=== PATIENT | male | born 1940 | race Caucasian/White ===

== ENCOUNTER → 2018-09-17 | Outpatient (CLI) | payer OTHER | LOC: CAT 08:01 | PROVIDERS: Family Medicine | DX: K40.30 Unilateral inguinal hernia, with obstruction, without gangrene, not specified as recurrent (principal) ==

== ENCOUNTER 2019-05-21 11:00 | Inpatient (IN) | payer OTHER ==
[~2019-05-21] VITALS: Ht 170.2 cm; Wt 72.6 kg
[2019-05-21] VITALS (7 sets, daily range): BP systolic 121–142; BP diastolic 54–76
--- NOTE | ~2019-05-21 | O ---
[facility] [place] [address] OPERATIVE REPORT Name: EDEL NAVARRO Room #: 150-11 [facility] M..#: [id number] Admission: 05/21/19 Attend Phys: Chris Soler MD Discharge: Date of : 42 Report #: [id number] THIS REPORT FOR: cc: Clovis Ayala,Chris Mtz MD ~ THIS REPORT FOR: //name// CC: Clovis Cornelius DATE OF SERVICE: 05/21/2019 PREOPERATIVE DIAGNOSIS: Incarcerated left inguinal/femoral hernia. POSTOPERATIVE DIAGNOSIS: incarcerated left femoral hernia. OPERATIVE PROCEDURE DONE: Laparoscopic repair of incarcerated left femoral hernia. OPERATING SURGEON: Chris Soler MD INDICATIONS FOR PROCEDURE: The patient is a 78-year-old male who presented with complaints of right groin pain and irreducible lump. The patient was referred by Dr. Ayala on suspicion of an incarcerated hernia. Clinically, he was noted to have an incarcerated inguinal hernia, possibly a femoral hernia. The patient was advised laparoscopic repair of the same. DESCRIPTION OF PROCEDURE: After explaining to the patient in detail and informed consent was obtained, the patient was identified in the preoperative holding area. The patient was transferred to the operating room and was placed in supine position. Sequential compressive devices were placed for DVT prophylaxis. Preoperative antibiotics were given. After induction of anesthesia, the abdomen was prepped and draped in a sterile fashion. Through a left upper quadrant stab incision and using Veress needle technique, I attempted to create pneumoperitoneum; however, I was unable to accurately place a Veress needle and therefore, using through a 1 cm incision in the left flank and using Optiview technique, peritoneal cavity was entered and pneumoperitoneum was continued. Another 5 mm trocar was placed in the right flank and another 5 mm trocar was placed through a supraumbilical incision. On initial inspection, the patient was noted to have incarcerated hernia in the right groin. On further inspection, it was noted to be a right femoral hernia. This was containing omentum. This was gently reduced with gentle traction. I then reflected the peritoneum from the anterior abdominal wall at the level of the anterior superior iliac spine. The sac was dissected using sharp and blunt dissection, I [address] [address] OPERATIVE REPORT Name: EDEL NAVARRO Room #: 150-11 [facility] M..#: [id number] Admission: 05/21/19 Attend Phys: Chris Soler MD Discharge: Date of : 42 Report #: [id number] was finally able to reduce the sac. The William's ligament was exposed medially. I then also did a lateral exposure. Once this was completed, I then chose a large size 3DMax mesh and this was placed into this hernial space. The mesh was then tacked medially onto the William's ligament. One tack was placed anteriorly. Two tacks were placed laterally. The mesh was then covered using the underlying peritoneum using SecureStrap at 1 cm intervals. There was minimal oozing that was noted from one of the tacks sites, which was controlled with pressure and Edin. Absolute hemostasis was then ensured. The abdomen was then deflated. Incisions were then closed with 4-0 Monocryl. Dermabond was applied. The patient was stable at the end of the procedure. The patient was awoken up from anesthesia and was transferred to the recovery room in stable condition. ESTIMATED BLOOD LOSS: 15 mL. CONDITION OF THE PATIENT: Stable. FLUIDS GIVEN: Per anesthesia notes. SPECIMEN SENT: None. COMPLICATIONS: None. ANESTHESIA: General anesthesia. By: [id number] Chris Soler MD /nt
--- NOTE | 2019-05-21 17:54 | NUR ---
NEW ADMIT FOR HERNIA REPAIR, A/OX4, DENIES CHEST PAIN, DENIES SOB, ABD PAIN MANAGED WITH MEDICATIONS, 3 LAP SITES ACROSS ABD INTACT WITH DURABOND. ADMISSION ASSESMENT AND HISTORY COMPLETED. ORIENTED TO ROOM AND CALL LIGHT. INSTRUCTED PT TO CALL FOR ASSISTANCE.
[2019-05-22 04:20] VITALS: BP 114/72
--- NOTE | 2019-05-22 06:05 | NUR ---
Pt. requested mucinex for congestion , doctor notified and order received. By the time order obtained , pt. already sleeping. C/o minor discomfort with movement bhe rated as 2/10 but refused to take pain med when offered. No nausea or vomiting just belching.He slept some then woke up very upset with kleenex all over the floor and stated he disconnected something off the wall. Pt. will not allow staff to empty trash or tidy up room and stated if we attempt he will raise hell that might wake up everybody on the floor. Pt. allowed to vent and waited till he calm down a little. Offered the mucinex that was ordered but he refused to take it stating it's been hours and he will only get charge for it. Offered pain med again but denies need for it. Lap sites well approximated. Voided per urinal. SCD's on most of the night but refused to put it back once he woke up. Will continue to monitor.
[2019-05-22 07:08] VITALS: BP 130/73
[2019-05-22 08:54] LABS: HEMATOCRIT 44.4 % (42.0-52.0); HEMOGLOBIN 14.2 gm/dL (14.0-18.0); MCH 27.9 pg (26.0-34.0); MCHC 32.1 g/dL (28.0-37.0); MCV 86.8 fL (80.0-100.0); RBC 5.11 mil/uL (4.50-6.00); RDW 12.6 % (10.5-14.5); WBC 10.2 thou/uL (4.0-11.0)
[2019-05-22 09:01] LABS: ALBUMIN 3.4 g/dL (3.4-5.0); CALCIUM 8.5 mg/dL (8.5-10.1); CREATININE 1.1 mg/dL (0.7-1.3); PHOSPHORUS 2.2 mg/dL (2.5-4.9); POTASSIUM 4.2 mmol/L (3.5-5.1)
--- NOTE | 2019-05-22 10:00 | NUR ---
PT alert and oriented X4. ASSESSMENT COMPLETED, LAP SITES DRY, CLEAN AND INTACT. NO SIGNS OF BLEEDING. PT BOWEL SOUNDS HYPOACTIVE. PT STATES PASSING GAS. INCENTIVE SPIROMETER USE IS BEING ENCOURAGE, PT TOLERATES IT FAIRLY. PT CPMPLAINS OF COUGH, PRODUCTIVE. PT UP IN CHAIR, DENIES ANY OTHER NEEDS AT THE MOMENT. CALL LIGHT IN REACH AND CHAIR ALARM.
--- NOTE | 2019-05-22 10:10 | NUR ---
1005 WEMT IN TO CHECK UP ON PT, SAW PT IN BATHROOM VOMITING. EMESIS LOOKED DARK IN COLOR. 1010 DR. EILER ARTHUR, WAITING ON RESPONSE. WILL CONTINUE TO CHECK UP ON PT.
--- NOTE | 2019-05-22 11:13 | NUR ---
DR CR CALLED BACK. ORDERS PUT IN PER HIS REQUEST. PT AND CURT UPDATED ON CARE.
[2019-05-22 19:14] VITALS: BP 129/74
--- NOTE | 2019-05-22 19:48 | NUR ---
PT WAS FOUND WITH SMALL BOTTLE OF ASSORTED MEDS IN BED. PT STATES THEY ARE ALL SUPPLEMENTS OR VITAMINS. PT EDUACATED ON HOSPITAL POLICY THAT PATIENTS CANNOT TAKE HOME MEDICATIONS WITHOUT A PHYSICIAN ORDER. MEDICATIONS AND BOTTLE SENT TO PHARMACY. NO MEDS LISTED UNDER PT'S MED REC. PT STATED HE NEEDS TO GET HIS HOME MED LIST TO TELL US WHAT MEDS HE TAKES AT HOME. NURSING WILL UPDATE MED REC ONCE WE RECEIVE PT'S HOME MED LIST.
[2019-05-23 03:46] VITALS: BP 125/66
--- NOTE | 2019-05-23 05:09 | NUR ---
ASSUMED PT CARE AROUND 1899. A&OX4. PT C/O ACID REFLUX AND LOTS OF BELCHING AT BEGINNING OF SHIFT. PT HAD 1 EPISODE OF PITTING UP SMALL AMOUNT OF COFFEE GROUND MUCOUS AROUND 2029. ZOFRAN WAS GIVEN. PT SLEPT MOST OF THE NIGHT. RESP EVEN AND UNLABORED. PT STILL STATES HE IS NOT PASSING ANY FLATUS. PT INSTRUCTED TO NOTIFY NURSING IF HE HAS A BOWEL MOVEMENT. PROGRESSING SLOWLY TOWARD POC GOALS. WILL CONTINUE TO MONITOR FURTHER.
[2019-05-23 05:29] LABS: HEMATOCRIT 39.3 % (42.0-52.0); HEMOGLOBIN 12.8 gm/dL (14.0-18.0); MCH 28.2 pg (26.0-34.0); MCHC 32.5 g/dL (28.0-37.0); MCV 86.8 fL (80.0-100.0); RBC 4.53 mil/uL (4.50-6.00); RDW 12.6 % (10.5-14.5)
[2019-05-23 07:03] VITALS: BP 95/72
--- NOTE | 2019-05-23 10:21 | NUR ---
pt alert and oriented X4, assessment completed. Pt continues to blech and hiccup, compalins of pain with hiccup. Dr. delatorre on the floor upadted on pt care. GI consulted per orders. Pt and family updated. call light in reach, bed at lowest level.
[2019-05-23 15:05] VITALS: BP 126/75
--- NOTE | 2019-05-23 16:34 | NUR ---
Pt bowel sounds hypoactive, pt continues to belch and hiccough. DR. delatorre updated on care
[2019-05-23 19:35] VITALS: BP 116/69
[2019-05-24 03:10] VITALS: BP 115/67
--- NOTE | 2019-05-24 05:21 | NUR ---
Medicated for pain with some relief. He slept fair during the night with at bedside. No nausea or vomiting this shift. Hiccups persists and only stops when sound asleep per pt. and .Kept NPO except pain med given this am with little sip of water. GI to see pt. today. Lap sites well approximated , PURCHASING OFFICER. Up with assist to bathroom and other times he uses urinal at bedside. Sinus arryhtmia per tele. Making progress towards care plan goals.
[2019-05-24 05:34] LABS: HEMATOCRIT 33.4 % (42.0-52.0); MCH 28.2 pg (26.0-34.0); MCHC 32.4 g/dL (28.0-37.0); MCV 87.1 fL (80.0-100.0); RBC 3.83 mil/uL (4.50-6.00); RDW 12.5 % (10.5-14.5); WBC 8.3 thou/uL (4.0-11.0)
[2019-05-24 05:44] LABS: HEMOGLOBIN 10.8 gm/dL (14.0-18.0)
[2019-05-24 05:50] LABS: CALCIUM 8.2 mg/dL (8.5-10.1); CREATININE 0.8 mg/dL (0.7-1.3); POTASSIUM 4.1 mmol/L (3.5-5.1)
[2019-05-24 07:27] VITALS: BP 111/74
[2019-05-24] MEDS ORDERED: PROTONIX 20 MG20 M1 PO (10:26)
[2019-05-24] MEDS ORDERED: NORCO 5-325 TA1 EAC1 PO (10:27)
[2019-05-24 15:11] VITALS: BP 120/69
--- NOTE | 2019-05-24 17:59 | NUR ---
ASSUMED PATIENT CARE AT 0700. A/0 X4. AMBULATED IN ROOM. NO N/V. STILL HAS HICCUPS. TOLERATED REGULAR DIET. WILL NPO AFTER MIDNIGHT TO HAVE EGD TOMORROW. SOLWYTOWARDS POC GOALS.
[2019-05-24 20:18] VITALS: BP 124/69
[2019-05-25 04:51] VITALS: BP 132/70
--- NOTE | 2019-05-25 05:48 | NUR ---
Ambulated around hallway x2 at HS. Encouraged use of IS while awake. Promethazine given for hiccups with some relief. Did not require pain med this shift and denies need when offered. Pain is mild between 2-3 / 10. Lap sites well approximated. He slept well during the night. at bedside. Pt. is now a low fall risk. Ambulated with steady gait . Fall hx from admission he stated was because of him not paying attention and he tripped over something. Kept NPO for possible EGD. Tolerated diet without nausea or vomiting. Making progress towards care plan goals.
[2019-05-25 06:22] LABS: HEMATOCRIT 30.9 % (42.0-52.0); HEMOGLOBIN 10.3 gm/dL (14.0-18.0); MCH 28.8 pg (26.0-34.0); MCHC 33.4 g/dL (28.0-37.0); MCV 86.2 fL (80.0-100.0); RBC 3.59 mil/uL (4.50-6.00); RDW 12.5 % (10.5-14.5); WBC 6.1 thou/uL (4.0-11.0)
[2019-05-25 06:40] LABS: CALCIUM 7.9 mg/dL (8.5-10.1); CREATININE 0.9 mg/dL (0.7-1.3); POTASSIUM 3.8 mmol/L (3.5-5.1)
[2019-05-25 07:15] VITALS: BP 114/56
[2019-05-25 10:05] VITALS: BP 114/56
--- NOTE | 2019-05-27 09:47 | HC ---
[facility] [place] [address] CONSULTATION Name: EDEL NAVARRO Room #: 349-I [facility] M.R.#: [id number] Admission: 05/21/19 Attend Phys: Chris Soler MD Discharge: 05/25/19 Date of : 42 Report #: [id number] THIS REPORT FOR: cc: Clovis Ayala James A. DO Mavec, James A. MD ~ CC: Clovis Soler DATE OF SERVICE: 05/24/2019 REASON FOR CONSULTATION: Reported hematemesis. HISTORY OF PRESENT ILLNESS: A 78-year-old male who had a herniorrhaphy. Postoperatively, he had small amount of bloody emesis x 2. This is resolved. He is having hiccoughs presently. He has not had problems like this before. He is on pantoprazole presently. He has been hemodynamically stable. Past medical, surgical, family, social histories reviewed on computerized medical records. PHYSICAL EXAMINATION: General: Alert and oriented. at bedside. LABORATORY DATA: Reviewing labs, his hemoglobin is stable. Platelet count is normal. BUN is 21, creatinine is 1.1. IMPRESSION: Some emesis after surgery that had blood in it. The patient is not having significant GI blood loss. Recommend continue empiric pantoprazole. The patient is still in the hospital, on 05/25/2019, can consider EGD, but presently not planning. <ELECTRONICALLY SIGNED> By: Toby Batista MD 05/27/19 [id number] Clovis Grimm MD /nt
== END 2019-05-25 10:30 | disposition home or self-care (01) | DRG 350 ==
LOC: OR 11:00 → TBA 11:00 → OR 16:42 → 3W 17:18 → OR 17:19 → 3W 17:20 → ENTRNSPT 05-25 10:31 → EDTRNSPTSTS 05-25 10:32
PROVIDERS: Surgery; ADMIT Surgery
PROC: 0YU84JZ Supplement Left Femoral Region with Synthetic Substitute, Percutaneous Endoscopic Approach (ICD-10-PCS; principal; 2019-05-21)
DX: K41.30 Unilateral femoral hernia, with obstruction, without gangrene, not specified as recurrent (principal); K29.71 Gastritis, unspecified, with bleeding; R06.6 Hiccough; K44.9 Diaphragmatic hernia without obstruction or gangrene; G47.33 Obstructive sleep apnea (adult) (pediatric); F32.9 Major depressive disorder, single episode, unspecified; F41.9 Anxiety disorder, unspecified; E78.5 Hyperlipidemia, unspecified; K21.9 Gastro-esophageal reflux disease without esophagitis; Z79.899 Other long term (current) drug therapy; Z68.25 Body mass index [BMI] 25.0-25.9, adult
CPT/HCPCS: 10779; 10879; 50010; 50101; 50411; 50507; 50555; 50900; 50984; 51489; 52265; 52266; 52287; 53307; 53310; 54022; 54118; 56525; 56526; 57257; 62110; 62900; 70005

== ENCOUNTER → 2020-05-19 | Outpatient (CLI) | payer OTHER ==
[~2020-05-19] MED LIST: NORCO 5-325 TA1 EAC1 PO; PROTONIX 20 MG20 M1 PO
== END ==
LOC: MRI 10:08
PROVIDERS: ATTEND Family Medicine
DX: G31.9 Degenerative disease of nervous system, unspecified (principal); F03.90 Unspecified dementia, unspecified severity, without behavioral disturbance, psychotic disturbance, mood disturbance, and anxiety; M47.812 Spondylosis without myelopathy or radiculopathy, cervical region